=== PATIENT | male | born 1985 | race Two or more races ===

== ENCOUNTER 2019-12-08 11:43 | Emergency (ER) | payer SELFPAY ==
[~2019-12-08] VITALS: Ht 180.3 cm; Wt 66.2 kg
--- NOTE | 2019-12-08 11:43 | NUR ---
PT BIB [address] C/O BIZARRE BEHAVIOR ,SCAVENGING THROUGH DIRT. PT IS AAOX2, NOT IN RESPIRATORY DISTRESS, HOOKED TO REPERTOIRE MANAGER, KEPT RESTED AND COMFORTABLE. WILL CONTINUE TO MONITOR.
--- NOTE | 2019-12-08 11:45 | NUR ---
PT SEEN AND EXAMINED BY
[2019-12-08] MEDS ORDERED: diphenhydrAMINE HCL 50 MG/ML VIAL IV ONE (12:00)
[2019-12-08] MEDS ORDERED: IV NS 0.9% 1,000 ML BAG IV ONE (12:00)
[2019-12-08] MEDS ORDERED: HALOPERIDOL LACTATE INJ 5 MG/ML VIAL IM ONE (12:00)
[2019-12-08] MEDS ORDERED: LORAZEPAM INJ 2 MG/ML VIAL IM/IV ONE (12:00)
--- NOTE | 2019-12-08 12:00 | NUR ---
IV LINE ESTABLISHED BLOOD DRAWN AND SENT TO LAB.
[2019-12-08 12:02] LABS: BASOPHILS % (AUTO) 0.1 % (0.0-2.0); HEMATOCRIT 49 % (39-51); HEMOGLOBIN 16.9 g/dL (13.5-17.5); LYMPHOCYTES # (AUTO) 0.3 /CMM (0.8-4.8); LYMPHOCYTES % (AUTO) 1.8 % (20.0-44.0); MEAN CORPUSCULAR HGB CONC 34 g/dl (31.0-36.0); MEAN CORPUSCULAR VOLUME 103 fL (80-96); MONOCYTES # (AUTO) 2.2 /CMM (0.1-1.30); MONOCYTES % (AUTO) 14.1 % (2.0-12.0); NEUTROPHILS # (AUTO) 13.4 /CMM (1.8-8.9); PLATELET COUNT (AUTO) 161 /CMM (150-450); WHITE BLOOD COUNT (AUTO) 15.9 K/uL (4.3-11.0)
[2019-12-08] MEDS ORDERED: HALOPERIDOL LACTATE INJ 5 MG/ML VIAL ONE (12:02)
[2019-12-08] MEDS ORDERED: diphenhydrAMINE HCL 50 MG/ML VIAL ONE (12:02)
[2019-12-08] MEDS ORDERED: LORAZEPAM INJ 2 MG/ML VIAL ONE (12:02)
--- NOTE | 2019-12-08 12:15 | NUR ---
URINE SPECIMEN COLLECTED AND SENT TO LAB.
[2019-12-08 12:25] LABS: APPEARANCE,URINE Slightly Cloudy (CLEAR); BILIRUBIN,URINE LARGE (NEGATIVE); BLOOD, URINE Large Ery/uL (NEGATIVE); COLOR,URINE Dark (YELLOW); KETONES,URINE 40 (NEGATIVE); LEUKOCYTE ESTERASE ,URINE Negative (NEGATIVE); NITRITE, URINE Positive (NEGATIVE); PH,URINE 5.5 (5.0-8.0); PROTEIN,URINE >=300 mg/dl (NEGATIVE); UGLUCOSE 100 MG/DL mg/dL (NEGATIVE)
[2019-12-08 12:30] LABS: BACTERIA,URINE 1+ /HPF (None Seen); HYALINE CASTS, URINE Moderate /LPF (None Seen); MUCUS,URINE H /LPF (None Seen); RBC,URINE 21-50 /HPF (0-2); SPERM,URINE Many /HPF (None Seen); WBC,URINE NONE SEEN /HPF (0-3)
[2019-12-08 12:30] LABS: ALANINE AMINOTRANSFERASE 223 U/L (12-78); ALCOHOL, BLOOD 13 mg/dL (0-0); ALKALINE PHOSPHATASE 151 U/L (46-116); ASPARTATE AMINOTRANSFERASE 927 U/L (15-37); BILIRUBIN,DIRECT 2.2 mg/dL (0.0-0.2); BILIRUBIN,TOTAL 5.9 mg/dL (0.2-1.0); CALCIUM, SERUM 10.2 mg/dL (8.5-10.1); CARBON DIOXIDE 15 mmol/L (21-32); CHLORIDE 88 mmol/L (98-107); CREATININE 1.4 mg/dL (0.6-1.3); GLUCOSE 71 mg/dL (74-106); SODIUM SERUM 131 mmol/L (136-145); TOTAL PROTEIN, SERUM 9.4 g/dL (6.4-8.2); UREA NITROGEN, BLOOD 40 mg/dL (7-18)
[2019-12-08 12:32] LABS: ACETAMINOPHEN < 10 ug/ml (10-30); POTASSIUM 2.7 mmol/L (3.5-5.1); SALICYLATE 0.2 mg/dL (2.8-20.0)
[2019-12-08] MEDS: POTASSIUM CL. PREMIX PERIPHER. 50 ML IV SCH ×2 (12:50→13:45)
[2019-12-08] MEDS ORDERED: POTASSIUM CL. PREMIX PERIPHER. 100 ML ONE (12:52)
--- NOTE | 2019-12-08 17:44 | NUR ---
PT ASLEEP ON BED. EASILY AROUSABLE. NOT IN RESPIRATORY DISTRESS, V/S STABLE, KEPT RESTED AND COMFORTABLE. WILL CONTINUE TO MONITOR.
--- NOTE | 2019-12-08 20:06 | NUR ---
PT ASLEEP, EASILY AROUSABLE. NO ACUTE DISTRESS NOTED, RESP EVEN AND UNLABORED. V/S STABLE, KEPT RESTED AND COMFORTABLE. WILL CONTINUE TO MONITOR. CALL LIGHT WITHIN REACH. 1:1 SITTER AT BEDSIDE FOR PT SAFETY.
--- NOTE | 2019-12-09 00:04 | NUR ---
PATIENT IS ASLEEP IN BED WITH SIDE RAILS UP FOR SAFETY. PATIENT IS BREATHING EVENLY AND UNLABORED ON ROOM AIR. PATIENT IS AROUSABLE THROUGH VERBAL AND TACTILE STIMULI. CONNECTED TO THE MONITOR. SITTER IS AT BEDSIDE.
--- NOTE | 2019-12-09 03:42 | NUR ---
pt aaox4 no acute distress noted, resp even and unlabored. pt denies si/hi at this time. food tray provided to pt. pt denies pain or discomfort at this time.
--- NOTE | 2019-12-09 04:16 | NUR ---
pt ambulatory to the bathroom with steady gait noted. pt aaox4 no acute distress noted, resp even and unlabored. pt remains pain free at this time.
--- NOTE | 2019-12-09 05:13 | NUR ---
Patient discharged to home in stable condition. Written and verbal after care instructions given. Patient verbalizes understanding of instruction. pt denies si/hi. pt denies being homeless. pt denies pain or discomfort at this time. pt aaox4 ambulatory with steady gait noted.
[2019-12-09 05:20] VITALS: BP 123/64
== END 2019-12-09 05:20 | disposition home or self-care (01) ==
LOC: ER 11:45
DX: F23 Brief psychotic disorder (principal); E87.6 Hypokalemia; F17.200 Nicotine dependence, unspecified, uncomplicated; Z60.2 Problems related to living alone
CPT/HCPCS: 36415; 80048; 80076; 80305; 80307; 80329; 81001; 85025; 96361; 96365; 96366; 96372; 96375; 99285; G0480; J1200; J1630; J2060; J3480; J7030; J7050; 81000-TC

== ENCOUNTER 2020-01-26 12:11 | Inpatient (IN) | payer MEDICAID ==
[~2020-01-26] VITALS: Ht 172.7 cm; Wt 77.1 kg
--- NOTE | 2020-01-26 12:20 | NUR ---
DARLINE Joyce FROM THE [facility] C/O WITNESSED SEIZURE FOR 1 MIN. PATIENT A/OX2-3, VERBALLY RESPONSIVE, BREATHING EVEN AND UNLABORED, NO SOB NOTED, NEEDS ATTENDED, KEPT COMFORTABLE.
[2020-01-26] MEDS ORDERED: LORAZEPAM INJ 2 MG/ML VIAL IVP ONE (12:30)
[2020-01-26] MEDS ORDERED: IV NS 0.9% 1,000 ML BAG IV ONE (12:30)
[2020-01-26] MEDS ORDERED: LORAZEPAM INJ 2 MG/ML VIAL ONE (12:44)
[2020-01-26 12:51] LABS: BASOPHILS # (AUTO) 0.1 /CMM (0.0-0.2); BASOPHILS % (AUTO) 0.6 % (0.0-2.0); HEMATOCRIT 44 % (39-51); HEMOGLOBIN 15.3 g/dL (13.5-17.5); LYMPHOCYTES # (AUTO) 0.5 /CMM (0.8-4.8); MEAN CORPUSCULAR HGB CONC 35 g/dl (31.0-36.0); MEAN CORPUSCULAR VOLUME 101 fL (80-96); MONOCYTES # (AUTO) 0.8 /CMM (0.1-1.30); MONOCYTES % (AUTO) 8.7 % (2.0-12.0); NEUTROPHILS # (AUTO) 8.3 /CMM (1.8-8.9); NEUTROPHILS % (AUTO) 85.7 % (43.0-81.0); PLATELET COUNT (AUTO) 213 /CMM (150-450); RED BLOOD CELL COUNT(AUTO) 4.32 MIL/uL (4.5-6.0); WHITE BLOOD COUNT (AUTO) 9.7 K/uL (4.3-11.0)
[2020-01-26 12:59] LABS: CALCIUM, SERUM 9.1 mg/dL (8.5-10.1); CARBON DIOXIDE 26 mmol/L (21-32); CHLORIDE 94 mmol/L (98-107); CREATININE 0.9 mg/dL (0.6-1.3); GLUCOSE 181 mg/dL (74-106); SODIUM SERUM 136 mmol/L (136-145); UREA NITROGEN, BLOOD 5 mg/dL (7-18)
[2020-01-26 13:05] LABS: ALANINE AMINOTRANSFERASE 42 U/L (12-78); ALBUMIN 4.3 g/dL (3.4-5.0); ALCOHOL, BLOOD < 3 mg/dL (0-0); ALKALINE PHOSPHATASE 156 U/L (46-116); ASPARTATE AMINOTRANSFERASE 71 U/L (15-37); BILIRUBIN,DIRECT 0.4 mg/dL (0.0-0.2); BILIRUBIN,TOTAL 1.4 mg/dL (0.2-1.0); TOTAL PROTEIN, SERUM 8.6 g/dL (6.4-8.2)
--- NOTE | 2020-01-26 13:57 | NUR ---
MOVE SHEET SUBMITTED.
--- NOTE | 2020-01-26 14:07 | NUR ---
PATIENT A/OX4, ATTEMPTED TO STAND UP BUT C/O DIZZINESS. BREATHING EVEN AND UNLABORED, APPEARS TO BE "FIDGETY" ATTACHED TO THE EDUCATIONAL CONSULTANT. NO DISTRESS NOTED.
--- NOTE | 2020-01-26 14:33 | NUR ---
RETAIL LEADER PAGED.
--- NOTE | 2020-01-26 14:59 | NUR ---
COVID SWAB SENT TO LAB.
--- NOTE | 2020-01-26 15:26 | NUR ---
[facility] BED 207-1
--- NOTE | 2020-01-26 15:31 | NUR ---
REPORT GIVEN TO NICOLA DOLAN.
[2020-01-26 16:00] VITALS: BP 146/113
--- NOTE | 2020-01-26 16:00 | NUR ---
ADMISSION RN NOTES RECEIVED REPORT FROM ISIDRO HURT. PATIENT CAME VIA GURNEY TO HIS ROOM. INITIAL VITAL SIGNS BP 146/113 HR 74 SPO2 98% TEM 98.2F RR 18. ON TELE MONITOR SR 80. NO SIGNS OF DISTRESS IN ROOM AIR. NO COMPLAIN OF PAIN AT THIS MOMENT. ORIENTED TO HIS ROOM. SEIZURE PRECAUTION IS APPLIED SIDE RAILS UP X 2 BED LOCK AND IN LOW POSITION. CALL LIGHT WITHIN REACH. WILL CONTINUE TO MONITOR.
--- NOTE | 2020-01-26 16:06 | NUR ---
COVID RESULT: NEGATIVE
--- NOTE | 2020-01-26 17:26 | NUR ---
PATIENT HOMELESS, REQUESTED SOCIAL SERVICE CONSULTATION.
[2020-01-26] MEDS ORDERED: Thiamine 300 MG in IV D5W 50 ML IV ONE (18:00)
[2020-01-26] MEDS ORDERED: Z GUARD REMEDY 2 OZ OINT TP PRN (18:00)
[2020-01-26] MEDS ORDERED: ZOLPIDEM TARTRATE 5 MG TABLET PO PRN (18:00)
[2020-01-26] MEDS ORDERED: ACETAMINOPHEN 325 MG TABLET PO PRN (18:00)
[2020-01-26] MEDS ORDERED: POTASSIUM CHLORIDE 20 MEQ TAB.PRT.SR PO ONE (18:00)
[2020-01-26] MEDS ORDERED: ONDANSETRON HCL/PF 4 MG/2 ML VIAL IVP PRN (18:00)
--- NOTE | 2020-01-26 19:23 | NUR ---
PATIENT TELE MONITOR SVT 180 HR NOTED PATIENT WAS WALKING USING THE RESTROOM PATIENT WENT BACK TO BED RESTED MONITORED TELE AGAIN ST HR 111-120. WILL CONTINUE TO MONITOR. Addendum: 01/26/20 at 1929 by HEIDY COWART RN PATIENT TELE MONITOR SVT 180 HR NOTED PATIENT WAS WALKING USING THE RESTROOM PATIENT WENT BACK TO BED RESTED MONITORED TELE AGAIN ST HR 111-120. PATIENT ASYMPTOMATIC. WILL CONTINUE TO MONITOR.
--- NOTE | 2020-01-26 19:30 | NUR ---
RN CLOSING NOTES PATIENT IS A/O X 4 IN BED WITH NO SIGNS OF DISTRESS IN ROOM AIR. . IV R AC #18 G INTACT RUNNING NS AT 100 MLS/HR. NO COMPLAIN OF PAIN AT THIS MOMENT. PATIENT KEPT CLEAN AND DRY. ALL NEEDS, CARE, TREATMENT AND MEDICATIONS ADMINISTERED ANTICIPATED PER ORDER. SAFETY MEASURES ARE APPLIED, BED IS LOW AND LOCKED. SIDE RAILS UP X 2 FOR SAFETY. CALL LIGHT WITHIN REACH. WILL ENDORSE TO THE NEXT WINDOWS DESKTOP SUPPORT. Addendum: 01/26/20 at 1943 by HEIDY COWART RN KELSI CLOSING NOTES PATIENT IS A/O X 4 IN BED WITH NO SIGNS OF DISTRESS IN ROOM AIR. . IV R AC #18 G INTACT RUNNING NS AT 100 MLS/HR. NO COMPLAIN OF PAIN AT THIS MOMENT. SEIZURE PRECAUTION APPLIED. PATIENT KEPT CLEAN AND DRY. ALL NEEDS, CARE, TREATMENT AND MEDICATIONS ADMINISTERED ANTICIPATED PER ORDER. SAFETY MEASURES ARE APPLIED, BED IS LOW AND LOCKED. SIDE RAILS UP X 2 FOR SAFETY. CALL LIGHT WITHIN REACH. WILL ENDORSE TO THE NEXT WINDOWS DESKTOP SUPPORT.
[2020-01-26] MEDS: IV NS 0.9% 1,000 ML IV PRN (19:38)
[2020-01-26 20:00] VITALS: BP_SYST 127; BP_DIAS 85; BP_DIAS 88
--- NOTE | 2020-01-26 20:34 | NUR ---
RN OPENING NOTES PATIENT RECEIVED RESTING IN BED A/O X 4. STABLE ON RA WITH BREATHING EVEN AND UNLABORED, NO SOB NOTED. NO SIGNS OF ACUTE DISTRESS. NO COMPLAINTS OF PAIN OR DISCOMFORT. TELE MONITOR READING SR. IV LOCATED ON R AC #18 RUNNING NS @ 75ML/HR. SAFETY PRECAUTIONS IN PLACE WITH BED IN LOWEST POSITION, CALL LIGHT WITHIN REACH, BREAKS ON, SIDE RAILS UP. SEIZURE PRECAUTIONS IN PLACE. WILL CONTINUE TO MONITOR THROUGHOUT THE NIGHT.
[2020-01-27] VITALS: BP 124/92
[2020-01-27 04:00] VITALS: BP 146/90
--- NOTE | 2020-01-27 04:20 | NUR ---
RN NOTES COVID TEST COLLECTED ORALLY AND SENT TO LAB.
--- NOTE | 2020-01-27 04:30 | NUR ---
RN NOTES PATIENT COMPLAINING OF ABDOMINAL MILD PAIN ON LUQ AN ACHING SHARP FEELING. PRN TYLENOL 650 MG ADMINISTERED. WILL CONTINUE TO MONITOR.
[2020-01-27] MEDS: IV NS 0.9% 1,000 ML IV PRN (06:24)
--- NOTE | 2020-01-27 06:41 | NUR ---
RN CLOSING NOTES PATIENT RESTING IN BED A/O X 4. STABLE ON RA WITH BREATHING EVEN AND UNLABORED, NO SOB NOTED. NO SIGNS OF ACUTE DISTRESS. NO COMPLAINTS OF PAIN OR DISCOMFORT. TELE MONITOR READING SR. IV LOCATED ON R AC #18 RUNNING NS @ 100ML/HR. SAFETY PRECAUTIONS IN PLACE WITH BED IN LOWEST POSITION, CALL LIGHT WITHIN REACH, BREAKS ON, SIDE RAILS UP. SEIZURE PRECAUTIONS IN PLACE. ALL NEEDS ATTENDED TO. WILL ENDORSE TO ONCOMING SHIFT ABOUT MAGEN.
[2020-01-27 06:54] LABS: BASOPHILS % (AUTO) 0.5 % (0.0-2.0); EOSINOPHILS % (AUTO) 0.2 % (0.0-6.0); HEMATOCRIT 43 % (39-51); HEMOGLOBIN 14.7 g/dL (13.5-17.5); LYMPHOCYTES # (AUTO) 0.5 /CMM (0.8-4.8); LYMPHOCYTES % (AUTO) 8.2 % (20.0-44.0); MEAN CORPUSCULAR HGB CONC 35 g/dl (31.0-36.0); MEAN CORPUSCULAR VOLUME 102 fL (80-96); MONOCYTES # (AUTO) 0.7 /CMM (0.1-1.30); MONOCYTES % (AUTO) 11.6 % (2.0-12.0); NEUTROPHILS % (AUTO) 79.5 % (43.0-81.0); PLATELET COUNT (AUTO) 147 /CMM (150-450); RED BLOOD CELL COUNT(AUTO) 4.16 MIL/uL (4.5-6.0); WHITE BLOOD COUNT (AUTO) 6.3 K/uL (4.3-11.0)
--- NOTE | 2020-01-27 07:05 | NUR ---
RN OPENING NOTE RECEIVED PT AWAKE IN BED AT THIS TIME. AOX4. PT ABLE TO MAKE NEEDS KNOWN. NO SOB NOTED, NO S/S OF ANY ACUTE DISTRESS NOTED. NO C/O PAIN AT THIS TIME. PT ON EXTERNAL CARDIAC TELE MONITOR READING SR IN THE 90S. RESPIRATIONS ARE EVEN AND UNLABORED WITH EQUAL RISE AND FALL IN CHEST. IV ACCESS NOTED IN RAC G#18. SAFETY, SEIZURE AND ASPIRATION PRECAUTION IN PLACE AND MAINTAINED AT ALL TIMES. BED IN LOWEST LOCKED POSITION, HOB ELEVATED, SIDE RAILS UP X 2 AND PADDED, CALL LIGHT WITHIN REACH. WILL CONTINUE TO MONITOR
[2020-01-27 07:34] LABS: ALBUMIN 3.9 g/dL (3.4-5.0); BILIRUBIN,TOTAL 1.8 mg/dL (0.2-1.0); CALCIUM, SERUM 8.9 mg/dL (8.5-10.1); CREATININE 0.6 mg/dL (0.6-1.3); MAGNESIUM 2.1 mg/dL (1.8-2.4); PHOSPHORUS 2.8 mg/dL (2.5-4.9); TOTAL PROTEIN, SERUM 8.1 g/dL (6.4-8.2)
[2020-01-27 07:47] LABS: POTASSIUM 2.6 mmol/L (3.5-5.1)
--- NOTE | 2020-01-27 07:55 | NUR ---
POTASSIUM 2.6 CRITICAL LAB VALUE REPORTED BY SEVEN MAINTENANCE TECHNICIAN 3RD SHIFT, RESULTS READ BACK. DR GIORDANO MADE AWARE. PER DR GIORDANO, ADMINISTER KDUR 60MEQ PO X1. ORDERS CARRIED OUT. WILL CONTINUE TO MONITOR
[2020-01-27 08:00] VITALS: BP 137/92
[2020-01-27 08:05] LABS: THYROID STIMULATING HORMONE 1.075 uIU/mL (0.358-3.74)
[2020-01-27] MEDS: FOLIC ACID 1 MG TABLET PO SCH (08:28)
[2020-01-27] MEDS: MULTIVIT W/MINERALS 1 TAB TABLET PO SCH (08:28)
[2020-01-27] MEDS: POTASSIUM CHLORIDE 20 MEQ TAB.PRT.SR PO SCH ×3 (08:28→10:45)
[2020-01-27] MEDS: THIAMINE HCL 100 MG TABLET PO SCH (08:28)
[2020-01-27] MEDS: LORAZEPAM INJ 2 MG/ML VIAL IV PRN ×2 (08:29→12:38)
--- NOTE | 2020-01-27 08:30 | NUR ---
PT C/O TREMORS AND NOTED WITH TREMORS. BP 137/92 HR 86, RR 16, T 97.6, SPO2 98%. PER PT REQUEST ATIVAN 2MG IV Q4HRS PRN FOR TREMORS ADMINISTERED AT THIS TIME. WILL CONTINUE TO MONITOR
[2020-01-27] MEDS ORDERED: HYDROCODONE/APAP 10/325MG TABLET PO PRN (12:00)
--- NOTE | 2020-01-27 12:40 | NUR ---
PT C/O ACHING RIGHT RIB CAGE PAIN OF 7/10 AND TREMORS. PT NOTED WITH FACIAL GRIMACE/TREMORS. DR GIORDANO MADE AWARE. RECEIVED ORDER FOR NORCO 10-325MG PO Q6HR FOR PAIN. ORDERS READ BACK AND CARRIED OUT. ADMINISTERED NORCO 10-325MG PO Q6HR FOR PAIN AND ATIVAN 2MG IV Q4HR PRN FOR TREMORS PER ORDER. WILL CONTINUE TO MONITOR
--- NOTE | 2020-01-27 13:20 | NUR ---
PT NOTED WITH HR IN THE 140S. DR GIORDANO MADE AWARE. PER DR GIORDANO, ADMINISTER ATIVAN ORDERED AND GIVE 1LITER NS BOLUS. ORDERS. ORDERS CARRIED OUT, WILL CONTINUE TO MONITOR
[2020-01-27] MEDS ORDERED: IV NS 0.9% 1,000 ML IV ONE (13:30)
--- NOTE | 2020-01-27 14:23 | NUR ---
Social Service Consult: SS consult requested by Daniel Baird DNP for Homelessness. The pt. is 34 years old Male in Med/Surg for Alcohol Withdrawal. SW completed assessment via [employer]. The pt. was receptive to speaking to SW. The pt. appears neat and is alert and oriented x4. The pt.s speech is WNL and remained cooperative throughout assessment. The pt. denies hallucinations and denies SI/HI. The pt.s mood is Euthymic with full affect. Per pt. he has been experiencing homelessness for the pt. 4 months. Per pt. he was last residing in [facility] in [place] and plans to return there once ready for D/C. SW unable to find the address and phone number as it is a fairly new project. However, pt. stated that they will accept him back and that he knows how to get there via bus. Per patient, his sister who resides in a different state can be his emergency contact. Per pt., he is willing to provide his sisters number to nurse upon discharge as he has her number in his phone. Per pt. he is ambulatory. Per pt. he smokes Marijuana about every 2 days and is not a problem in his life. Per pt., he also consumes a couple of beers every 3-4 days. Pt. expressed that his alcohol consumption has been affecting his relationships negatively. Pt. stated that he enjoys drinking and does not wants to stop drinking. SW asked pt. if he has ever thought about going to a rehab. Pt. stated, he is not opposed to it. PRIYA provided Alcohol Use Treatment Programs including: [facility] Substance Abuse Self-helpline ([facility]) Contact number .Call the hotline and the hardware press operator will screen and link individual to an appropriate program. Must have Medi-natasha or be Med-natasha eligible; [facility] [address] [facility] [place] [address] ; [facility] [address] [place] [address] Appointment needed Intake at 8.00 am but this does not mean acceptance ; [facility] ([facility]nosticist based) [address] [place] [address] .Pt, expressed understanding and thanked SW. SW also provided pt. with the following resources: Year-round shelters : [facility] [address] [place] [address] ; [facility] [address] [facility] [place] [address]; [facility] [facility] [address] [facility]: [facility] [address] [place] ; [facility] [address] [facility] ; [facility] [address], [place] . Food Resources: [facility] at [facility]- [address] [place]; [facility] ([facility]) [address] [facility]; [facility] [address] [facility]; [facility] [address] [facility] [address]. Marriage and Family: [facility], [address] [place], [place], [facility], [address], [place], [facility], [address] [place] [address], [place] Mental Health resources provided: [facility] [address] [place] [address] ; [facility] [address], [place] [address] ; [address] [facility] Mental [facility] [address] [place] [address] ; [facility] [place], [place] [id number] PRIYA informed Charge Nurse that the pt. will require a TAP card and must sign homeless waiver upon discharge.
--- NOTE | 2020-01-27 14:24 | NUR ---
pt consulted by [employer] game platform, will continue to monitor
--- NOTE | 2020-01-27 14:30 | NUR ---
pt pulled out RAC iv access, pressure applied, secure with gauze and tape. no bleeding or infiltration noted. will continue to monitor
--- NOTE | 2020-01-27 14:40 | NUR ---
NEW IV ACCESS IN LAC G#20 INSERTED BY KELSI GUPTA. INTACT, PATENT AND FLUSHING WELL. WILL CONTINUE TO MONITOR
--- NOTE | 2020-01-27 15:40 | NUR ---
PT HAS NO IV ACCESS, DR GIORDANO MADE AWARE, WILL CONTINUE TO MONITOR
--- NOTE | 2020-01-27 15:43 | NUR ---
pt pulled out lac iv access, pressure applied, secure with gauze and tape. no bleeding or infiltration noted. will continue to monitor
[2020-01-27 16:00] VITALS: BP 133/74
[2020-01-27] MEDS ORDERED: HALOPERIDOL DECANOATE IM 100 MG/ML AMPUL IM ONE (16:30)
--- NOTE | 2020-01-27 16:47 | NUR ---
PT GETTING INCREASINGLY CONFUSED, PULLED OUT IV TWICE AND PACING. DR GIORDANO MADE AWARE, PER DR GIORDANO, ADMINISTER HALDOL 5MG IM X 1. ORDERS CARRIED OUT. WILL CONTINUE TO MONITOR
[2020-01-27] MEDS ORDERED: HALOPERIDOL LACTATE INJ 5 MG/ML VIAL IM ONE (17:00)
[2020-01-27] MEDS ORDERED: LORAZEPAM INJ 2 MG/ML VIAL IM PRN ×2 (18:00)
--- NOTE | 2020-01-27 18:00 | NUR ---
PT NOTED PACING/ANXIOUS, PER PT REQUEST ATIVAN 2MG IM Q4HRS PRN ADMINISTERED AT THIS TIME. WILL CONTINUE TO MONITOR
--- NOTE | 2020-01-27 18:03 | NUR ---
PT KEEPS PULLING OUT IV. DOCTOR GIULIANA MADE AWARE. PER DOCTOR GIORDANO, ADMINISTER ATIVAN IM. ATIVAN CHANGED FROM IV TO IM. ORDERS CARRIED OUT. WILL CONTINUE TO MONITOR
--- NOTE | 2020-01-27 18:56 | NUR ---
RN CLOSING NOTES PT AWAKE IN BED AT THIS TIME. PT REMAINED STABLE THROUGHOUT SHIFT. ALL CARE, NEEDS, MEDICATIONS, AND TREATMENT ADMINISTERED ANTICIPATED PER ORDER. PT KEPT CLEAN AND DRY. SEIZURE AND SAFETY PRECAUTION IN PLACE AND MAINTAINED AT ALL TIMES. BED IN LOWEST LOCKED POSITION, HOB ELEVATED, SIDE RAILS UP X 2, CALL LIGHT WITHIN REACH. WILL ENDORSE TO CLIENT SERVER PROGRAMMER NURSE FOR MAGEN
--- NOTE | 2020-01-27 19:00 | NUR ---
GPS NAVIGATION INSTALLER OPENING NOTES: RECEIVED PATIENT INSIDE THE ROOM, WALKING AROUND. CONFUSED. AND AFTER FEW MINUTES PATIENT WENT OUT OF THE ROOM AND WANTS TO LEAVE AND HE SAID HE WANTS TO GO TO THE STORE. PER REPORTS FROM THE DAYSHIFT, PATIENT WAS GOING OUTSIDE OF THE ROOM SEVERAL TIMES AND TRIED TO GO OUT OF THE FLOOR. PATIENT IS A/OX1,CONFUSED. NO S/S OF DISTRESS NOTED. NO COMPLAIN OF PAIN. AMBULATORY WITH STEADY GAIT. PATIENT REMINDED EVERY TIME HE TRIED TO GO OUT OF THE ROOM AND REDIRECTED TO HIS BED.
--- NOTE | 2020-01-27 19:30 | NUR ---
INSERTED RIGHT HAND IV G# 22. BACK FLOW OF BLOOD RETURN NOTED, PT TOLERATED WELL. IV INTACT, PATENT AND FLUSHING WELL. WILL ENDORSE TO MILL LABORER NURSE FOR MAGEN.
[2020-01-27 20:00] VITALS: BP 143/80
--- NOTE | 2020-01-27 20:00 | NUR ---
BILATERAL SOFT WRISTS RESTRAINTS APPLIED. IVF NS RUNNING AT 100ML/HOUR RESTARTED. AND MONITOR LEADS PLACED.
--- NOTE | 2020-01-27 20:20 | NUR ---
PATIENT ABLE TO REMOVE THE BOTH RESTRAINTS AND THE MONITOR LEADS.ASSISTED BY THE AGRICULTURAL TECHNICAL OFFICER TO THE BATHROOM,PATIENT VOIDED. LEADS PLACED BACK. BUT THE RESTRAINTS UNABLE TO PUT THEM BACK, PATIENT IS REFUSING. INFORMED DR INDERJIT GIORDANO AND GOT AN ORDER FOR A 1:1 SITTER. ANNIE VILLASENOR WATCHING THE PATIENT AT THIS TIME.
--- NOTE | 2020-01-27 20:53 | NUR ---
INFORMED CHARGE NURSE FLOYD RE: 1:1 SITTER. AND SHE SAID THAT TO CALL THE TALENT RECRUITER.
--- NOTE | 2020-01-27 21:00 | NUR ---
INFORMED THE CITY JAILER JAIR RE: 1:1 SITTER.
--- NOTE | 2020-01-27 21:08 | NUR ---
ASKED THE PATIENT WHERE HE IS AT RIGHT NOW, PATIENT REPLIED" I'M [place]".
[2020-01-28] VITALS: BP 130/91
--- NOTE | 2020-01-28 00:25 | NUR ---
PATIENT IS IN BED ASLEEP AT THIS TIME WITH RICKEY VILLASENOR. STILL WITH IV AND IVF NS RUNNING AT 100ML/HOUR. MONITOR LEADS ARE NOT ON THE PATIENTS RIGHT NOW, TRIED SEVERAL TIMES TO PLACE THEM BACK ON TO THE PATIENT, BUT PATIENT DOES NOT WANT, PATIENT WAS HOLDING THE BOX AND WON'T LET IT GO, AND PATIENT WAS COMBATIVE.
--- NOTE | 2020-01-28 00:30 | NUR ---
INFORMED CREATIVE PRODUCER KARLI RE:PATIENT HAS NO MONITOR LEADS FOR TELE.
[2020-01-28] MEDS: IV NS 0.9% 1,000 ML IV PRN ×2 (01:42→12:06)
[2020-01-28 04:00] VITALS: BP 149/98
--- NOTE | 2020-01-28 05:58 | NUR ---
BROOMCORN SCRAPER CLOSING NOTES: PATIENT IN BED, AWAKE. A/O X2,WITH PERIODS OF CONFUSION, PATIENT IS CALM AT THIS TIME. RESTED THROUGHOUT THE NIGHT. WITH THE SITTER AT THE BEDSIDE. AMBULATORY, STEADY GAIT. NO S/S OF DISTRESS NOTED. NO COMPLAIN OF PAIN DURUNG THE SHIFT. NO SEIZURES NOTED. STILL WITH THE IVF RUNNING NS AT 100ML/HR. CALL LIGHT WITHIN REACH. BED IN LOWEST AND LOCKED POSITION.
--- NOTE | 2020-01-28 06:30 | NUR ---
REPORTS GIVEN TO KELSI LIMA. PATIENT WAS TRANSFERRED BY WHEELCHAIR WITH HIS BELONGINGS, ACCOMPANIED BY ANNIE VILLASENOR.
[2020-01-28 06:53] LABS: BASOPHILS % (AUTO) 0.5 % (0.0-2.0); EOSINOPHILS % (AUTO) 0.4 % (0.0-6.0); HEMATOCRIT 43 % (39-51); LYMPHOCYTES # (AUTO) 0.7 /CMM (0.8-4.8); LYMPHOCYTES % (AUTO) 14.5 % (20.0-44.0); MEAN CORPUSCULAR HGB CONC 35 g/dl (31.0-36.0); MEAN CORPUSCULAR VOLUME 102 fL (80-96); MONOCYTES # (AUTO) 0.6 /CMM (0.1-1.30); MONOCYTES % (AUTO) 13.7 % (2.0-12.0); NEUTROPHILS # (AUTO) 3.2 /CMM (1.8-8.9); NEUTROPHILS % (AUTO) 70.9 % (43.0-81.0); PLATELET COUNT (AUTO) 141 /CMM (150-450); RED BLOOD CELL COUNT(AUTO) 4.22 MIL/uL (4.5-6.0); WHITE BLOOD COUNT (AUTO) 4.5 K/uL (4.3-11.0)
[2020-01-28 07:07] LABS: CALCIUM, SERUM 9.1 mg/dL (8.5-10.1); CREATININE 0.5 mg/dL (0.6-1.3); MAGNESIUM 2.2 mg/dL (1.8-2.4); PHOSPHORUS 3.7 mg/dL (2.5-4.9)
--- NOTE | 2020-01-28 07:19 | NUR ---
MS/RN CLOSING NOTE Patient transferred from [facility] via wheel chair. Patient A/O x1-2, with sitter at bedside. Breath sounds even clear unlabored. No SOB or acute distress. Patient is ambulatory with BRP. IV access R wrist 20g running NS @ 100 ml/hr. No infiltration. Bed in low position, wheels locked, side rails up x2, call light within reach.
--- NOTE | 2020-01-28 07:40 | NUR ---
EXTENSION PROFESSOR OPENING NOTES BEDSIDE ENDORSEMENT DONE. PATIENT IS AWAKE AND VERBALLY RESPONSIVE, A/O X2-3, ABLE TO MAKE NEEDS KNOWN. BREATHING EVEN AND UNLABORED, TOLERATING ROOM AIR, NO ACUTE DISTRESS. ON TELE MONITORING, SR W/ HR AT MID 70'S, NO CARDIAC DISTRESS NOTED. IV SITE ON R HAND #22 INTACT AND PATENT. SAFETY PRECAUTIONS IN PLACE: BED LOCKED AND ON LOWEST POSITION, SR UP X2, CALL LIGHT W/IN REACH. WILL CONTINUE TO MONITOR.
[2020-01-28 07:48] LABS: POTASSIUM 2.4 mmol/L (3.5-5.1)
[2020-01-28 08:00] VITALS: BP 144/106
[2020-01-28] MEDS: MULTIVIT W/MINERALS 1 TAB TABLET PO SCH (08:20)
[2020-01-28] MEDS: FOLIC ACID 1 MG TABLET PO SCH (08:20)
[2020-01-28] MEDS: THIAMINE HCL 100 MG TABLET PO SCH (08:21)
[2020-01-28] MEDS ORDERED: POTASSIUM CHLORIDE 10 MEQ/50 ML PREMIXED IVPB FOR PERIPHERAL LINE IV ONE (10:00)
[2020-01-28] MEDS: POTASSIUM CHLORIDE 10 MEQ/50 ML PREMIXED IVPB FOR PERIPHERAL LINE IV SCH ×4 (10:59→14:16)
[2020-01-28] MEDS: DIAZEPAM 5 MG TABLET PO PRN ×2 (11:13→21:37)
[2020-01-28] MEDS: POTASSIUM CL. PREMIX PERIPHER. 50 ML IV SCH ×4 (14:46→18:05)
[2020-01-28] MEDS ORDERED: POTASSIUM CHLORIDE 10 MEQ/50 ML PREMIXED IVPB FOR PERIPHERAL LINE IV SCH (15:00)
[2020-01-28 16:00] VITALS: BP 151/114
--- NOTE | 2020-01-28 17:51 | NUR ---
RN NOTES PATIENT REQUESTED TO HAVE SHOWER. IV SITE WRAPPED AND PROTECTED. PATIENT IS ALERT AND VERBALLY RESPONSIVE, ABLE TO MAKE NEEDS KNOWN, CURRENTLY IN CALM CONDITION.
[2020-01-28] MEDS ORDERED: AMLODIPINE BESYLATE 5 MG TABLET PO ONE (18:30)
--- NOTE | 2020-01-28 18:30 | NUR ---
RN NOTES PATIENT NOTED W/ BP OF 151/114, HR OF 113. DR. GIORDANO MADE AWARE W/ ORDER OF NORVASC 5MG PO X1 NOW, THEN DAILY STARTING TOMORROW, NOTED AND CARRIED OUT. WILL CONTINUE TO MONITOR.
--- NOTE | 2020-01-28 18:56 | NUR ---
MS RN CLOSING NOTES PATIENT AWAKE, CALM AND SITTING ON BED AT THIS TIME WITH SITTER AT BEDSIDE. A/O X3. ABLE TO MAKE NEEDS KNOWN. NO EPISODE OF SEIZURE NOTED THROUGHOUT THE DAY. ON ROOM AIR, BREATHING EVEN AND UNLABORED. IV ACCESS ON R HAND G#22 INTACT AND PATENT, IVF INFUSING ORDERED, NO S/S OF INFILTRATION NOTED AT SITE. ALL NEEDS AND CARE ATTENDED WELL. SAFETY PRECAUTIONS IN PLACE: BED LOCKED AND ON LOWEST POSITION, SR UP X2, CALL LIGHT W/IN REACH. WILL ENDORSE MAGEN TO NIGHT NURSE.
[2020-01-28] MEDS ORDERED: AMLODIPINE BESYLATE 5 MG TABLET PO SCH (19:00)
--- NOTE | 2020-01-28 19:30 | NUR ---
MS RN OPENING NOTED RECEIVED PATIENT IN BED. A/OX3. TOLERATING ROOM AIR. RESPIRATIONS ARE EVEN AND UNLABORED. NO S/SS OB NOTED. NO C/O PAIN AT THIS TIME. IN NO APPARENT DISTRESS. IV ACCESS IN RIGHT HAND#22 RUNNING NS@100ML/HR. INFORMED PATIENT LAB WILL DRAW BLOOD TO REASSESS POTASSIUM LEVELS AND INTERVENTIONS POSSIBLE NEEDED IF LEVEL IS LOW. BED IS LOW AND LOCKED, HOB ELEVATED IN SEMI FOWLERS, SIDE RIALS UP X2. ISIAH LIGHT WITHIN REACH. WILL CONTINUE TO MONITOR.
[2020-01-28 20:00] VITALS: BP 151/116
--- NOTE | 2020-01-28 20:18 | NUR ---
MS RN NOTE INFORMED TITLE INSURANCE SALES REPRESENTATIVE MD DR. MUNGUIA PATIENT BP IS 151/115 HR 108. LAST BP MED GIVEN NORVASC 5MG AT 1845. TELEPHONE ORDER CLONIDINE 0.1MG Q6HR PRN SBP >150. ORDER READ BACK NOTED AND CARRIED OUT. WILL CONTINUE TO MONITOR.
[2020-01-28] MEDS ORDERED: CLONIDINE HCL 0.1 MG TABLET PO PRN (20:30)
--- NOTE | 2020-01-28 20:48 | NUR ---
MS RN NOTE 2000 BLOOD DRAW FOR POTASSIUM LEVEL IS 3.5. NO INTERVENTION NEEDED PER MISCELLANEOUS ORDER. WILL CONTINUE TO MONITOR.
--- NOTE | 2020-01-28 21:21 | NUR ---
MS RN NOTE - MAGEN TRANSFER OF CARE GIVEN TO RAYSA ONEIL.
--- NOTE | 2020-01-28 21:26 | NUR ---
MS CLARICE INITIAL NOTES RECEIVED REPORT FROM ANOTHER NURSE DEAN FOR CONTINUITY OF CARE. PT AWAKE AND ALERT WATCHING TV AT THIS TIME. NO SIGNS OF ANY DISTRESS NOTED. IVF STILL INFUSING . KEPT HIM WARM AND COMFORTABLE AT ALL TIMES. WILL CONTINUE CLOSELY MONITORING.
--- NOTE | 2020-01-29 01:07 | NUR ---
MS WEAVER NEEDLE LOOM NOTES PT SLEEPING AFTER VALUIM GIVEN ORDERED. BLOOD PRESSURE RE-CHEKED AFTER CLONODINE GIVEN AN D CAME OUT 141/108.
--- NOTE | 2020-01-29 07:04 | NUR ---
ms jhonny closing notes pt woke up with smiles on his face ,pleasant and he's calmed, cooperative, no signs of any agitation noted throughout the shift. he told me he slept better and feel much better. he told me that he has a sister that lives in [facility] but he doesn't want to go back there at this time. he forgot that certified social workers in health care spoke to him yesterday . gave copy of the list of certified social workers in health care told him regarding his place to stay and where can he get support for the meantime. kept him warm and comfortable at all times. will endorse to am nurse for continuity of care.
--- NOTE | 2020-01-29 07:08 | NUR ---
MS RN OPENING NOTES PATIENT RECEIVED AWAKE IN BED IN NO ACUTE SIGNS OF DISTRESS. A/O X3-4. ABLE TO MAKE NEEDS KNOWN, DENIES PAIN R ANY DISCOMFORTS AT THIS TIME. ON ROOM AIR, BREATHING EVEN AND UNLABORED. IV ACCESS ON R HAND G#22 INTACT AND PATENT, IVF INFUSING ORDERED, NO S/S OF INFILTRATION NOTED AT SITE. SEIZURE AND SAFETY PRECAUTIONS IN PLACE: BED LOCKED AND ON LOWEST POSITION, SR UP X2, CALL LIGHT W/IN REACH. WILL CONTINUE TO MONITOR PT ACCORDINGLY.
[2020-01-29 07:44] LABS: BASOPHILS % (AUTO) 0.5 % (0.0-2.0); EOSINOPHILS % (AUTO) 1.5 % (0.0-6.0); HEMATOCRIT 49 % (39-51); HEMOGLOBIN 16.8 g/dL (13.5-17.5); LYMPHOCYTES % (AUTO) 18.7 % (20.0-44.0); MEAN CORPUSCULAR HGB CONC 34 g/dl (31.0-36.0); MEAN CORPUSCULAR VOLUME 105 fL (80-96); MONOCYTES # (AUTO) 0.8 /CMM (0.1-1.30); MONOCYTES % (AUTO) 14.9 % (2.0-12.0); NEUTROPHILS # (AUTO) 3.6 /CMM (1.8-8.9); NEUTROPHILS % (AUTO) 64.4 % (43.0-81.0); PLATELET COUNT (AUTO) 162 /CMM (150-450); RED BLOOD CELL COUNT(AUTO) 4.72 MIL/uL (4.5-6.0); WHITE BLOOD COUNT (AUTO) 5.5 K/uL (4.3-11.0)
[2020-01-29 07:58] LABS: CALCIUM, SERUM 9.5 mg/dL (8.5-10.1); CREATININE 0.6 mg/dL (0.6-1.3); MAGNESIUM 2.3 mg/dL (1.8-2.4); PHOSPHORUS 4.3 mg/dL (2.5-4.9)
[2020-01-29 08:10] LABS: POTASSIUM 2.8 mmol/L (3.5-5.1)
[2020-01-29] MEDS: AMLODIPINE BESYLATE 5 MG TABLET PO SCH (09:11)
[2020-01-29] MEDS: THIAMINE HCL 100 MG TABLET PO SCH (09:11)
[2020-01-29] MEDS: FOLIC ACID 1 MG TABLET PO SCH (09:11)
[2020-01-29] MEDS: MULTIVIT W/MINERALS 1 TAB TABLET PO SCH (09:11)
[2020-01-29] MEDS: MULTIPLE VIT (LYCOPENE/FA/MV,CA,IRON,MIN/LUT)1 TAB PO SCH (09:12)
[2020-01-29] MEDS: POTASSIUM CHLORIDE 20 MEQ TAB.PRT.SR PO SCH ×3 (09:34→11:48)
--- NOTE | 2020-01-29 10:00 | NUR ---
RN NOTES RECEIVED NEW ORDER FROM DR. GIORDANO TO REPLENISH PATIENT'S POTASSIUM, NOTED.
[2020-01-29] MEDS: POTASSIUM CL. PREMIX PERIPHER. 50 ML IV SCH ×4 (14:43→18:08)
--- NOTE | 2020-01-29 18:49 | NUR ---
MS RN CLOSING NOTES PATIENT IS IN BED, AWAKE AND VERBALLY RESPONSIVE, IN NO ACUTE SIGNS OF DISTRESS. A/O X3-4. ABLE TO MAKE NEEDS KNOWN, DENIES PAIN NOR ANY DISCOMFORT AT THIS TIME. BREATHING EVEN AND UNLABORED, TOLERATING ROOM AIR. IV ACCESS ON R HAND G#22 INTACT AND PATENT, IVF INFUSING ORDERED. SEIZURE AND SAFETY PRECAUTIONS MAINTAINED: BED LOCKED AND ON LOWEST POSITION, SR UP X2, CALL LIGHT W/IN REACH. WILL ENDORSE TO WRINKLE CHASER RN FOR MAGEN.
[2020-01-29] MEDS: IV NS 0.9% 1,000 ML IV PRN (18:56)
--- NOTE | 2020-01-29 19:43 | NUR ---
MS/TELE/RN RECEIVED PATIENT IN ROOM SITTING ON CHAIR AT BEDSIDE AWAKE, ALERT, ORIENTED, CALM AND COMFORTABLE, NO DISTRESS NOTE, IVF INFUSING, CALL LIGHT IN REACH, WILL MONITOR.
[2020-01-29 20:00] VITALS: BP 150/112
--- NOTE | 2020-01-30 00:55 | NUR ---
MS/TELE PATIENT IS SLEEPING AT THIS TIME, APPEAR COMFORTABLE, NO DISTRESS NOTED, CALL LIGHT IN REACH. WILL CONTINUE TO MONITOR.
--- NOTE | 2020-01-30 06:56 | NUR ---
MS/TELE/RN PATIENT IS AWAKE AT THIS TIME, SITTING AT EDGE OF BED, CALM AND COMFORTABLE, NO DISTRESS NOTED, CALL LIGHT IN REACH, ALL NEEDS ATTENDED AT THIS TIME, WILL CONTINUE TO MONITOR.
--- NOTE | 2020-01-30 07:35 | NUR ---
MS RN NOTES RECEIVED PT IN BED, AWAKE, A/O X3-4. PT TOLERATING RA, WITH NO ACUTE RESPIRATORY DISTRESS NOTED. PT STATED RIGHT LATERAL PAIN, REFUSED PAIN MEDICINE. PT CONCERNED OF GOING HOME TODAY. RN TO FOLLOW UP. IVF NS 100 ML/HR TO RIGHT HAND 22, INTACT AND OPERATIONAL. PT KEPT COMFORTABLE. CALL LIGHT KEPT WITHIN REACH. PT'S BED IN LOWEST, LOCKED POSITION WITH SRX2. WILL CONTINUE PLAN OF CARE.
[2020-01-30 08:00] VITALS: BP 138/117
[2020-01-30 08:38] LABS: BASOPHILS % (AUTO) 0.6 % (0.0-2.0); EOSINOPHILS % (AUTO) 1.7 % (0.0-6.0); HEMATOCRIT 47 % (39-51); HEMOGLOBIN 16.4 g/dL (13.5-17.5); LYMPHOCYTES % (AUTO) 16.6 % (20.0-44.0); MEAN CORPUSCULAR HGB CONC 35 g/dl (31.0-36.0); MEAN CORPUSCULAR VOLUME 102 fL (80-96); MONOCYTES % (AUTO) 17.1 % (2.0-12.0); NEUTROPHILS # (AUTO) 3.7 /CMM (1.8-8.9); PLATELET COUNT (AUTO) 173 /CMM (150-450); RED BLOOD CELL COUNT(AUTO) 4.57 MIL/uL (4.5-6.0); WHITE BLOOD COUNT (AUTO) 5.8 K/uL (4.3-11.0)
[2020-01-30 08:43] LABS: CALCIUM, SERUM 9.6 mg/dL (8.5-10.1); CREATININE 0.6 mg/dL (0.6-1.3); MAGNESIUM 2.3 mg/dL (1.8-2.4); PHOSPHORUS 3.8 mg/dL (2.5-4.9); POTASSIUM 4.1 mmol/L (3.5-5.1)
[2020-01-30 08:49] VITALS: BP 138/117
[2020-01-30] MEDS: THIAMINE HCL 100 MG TABLET PO SCH (08:49)
[2020-01-30] MEDS: AMLODIPINE BESYLATE 5 MG TABLET PO SCH (08:49)
[2020-01-30] MEDS: MULTIPLE VIT (LYCOPENE/FA/MV,CA,IRON,MIN/LUT)1 TAB PO SCH (08:49)
[2020-01-30] MEDS: MULTIVIT W/MINERALS 1 TAB TABLET PO SCH (08:49)
[2020-01-30] MEDS: FOLIC ACID 1 MG TABLET PO SCH (08:49)
[2020-01-30 13:41] LABS: EOSINOPHILS % (MANUAL) 2 % (0-4); LYMPHOCYTES % (MANUAL) 20 % (16-48); MONOCYTES % (MANUAL) 14 % (0-11.0); NEUTROPHILS % (MANUAL) 64 (42-76)
--- NOTE | 2020-01-30 15:10 | NUR ---
MS RN NOTES PT TO GO HOME/USP AT [facility]. PT A/O X3-4, AMBULATORY. PT TOLERATING RA, WITH NO ACUTE RESPIRATORY DISTRESS NOTED. PT DENIES ANY PAIN OR DISCOMFORT AT THE TIME OF DISCHARGE. PIV RIGHT HAND 22, REMOVED. ALL NEEDS ATTENDED. PT REVIEWED AND SIGNED DISCHARGE INSTRUCTIONS AND INVENTORY LIST. ALL BELONGINGS WITH THE PATIENT. NO PRESCRIPTIONS. SKIN ASSESSED, SKIN INTACT. PT ALSO SIGNED HOMELESS WAIVER. HOSPITALIST/TS AWARE OF DISCHARGE. VS STABLE AT DISCHARGE. PT LEFT THE UNIT AT 1450. RN ESCORTED PT TO THE LOBBY, PT AMBULATORY, REFUSED WHEELCHAIR.
== END 2020-01-30 14:52 | disposition home or self-care (01) | DRG 775 ==
LOC: ER 12:13 → TELE2 15:49 → TELE 01-28 06:37 → MED 01-28 10:34
PROVIDERS: ADMIT Nurse Practitioner Acute Care; ATTEND Nurse Practitioner Acute Care
DX: F10.239 Alcohol dependence with withdrawal, unspecified (principal); T51.0X1A Toxic effect of ethanol, accidental (unintentional), initial encounter; G40.509 Epileptic seizures related to external causes, not intractable, without status epilepticus; Z59.0 Homelessness; K70.9 Alcoholic liver disease, unspecified; K29.20 Alcoholic gastritis without bleeding; F12.129 Cannabis abuse with intoxication, unspecified; E87.6 Hypokalemia; E80.6 Other disorders of bilirubin metabolism; R74.01 Elevation of levels of liver transaminase levels; F10.221 Alcohol dependence with intoxication delirium
CPT/HCPCS: 36415; 70450-TC; 71045-TC; 80048-TC; 80053-TC; 80061-TC; 80076-TC; 80305; 82962-TC; 83540-TC; 83735-TC; 84100-TC; 84132-TC; 84443-TC; 85025-TC; 85730-TC; 87081-TC; G0378; J1630; J1631; J2060; J3411; J3480; J7030; J7050; J7060; U0003-CS

== ENCOUNTER 2021-05-01 15:28 | Emergency (ER) | payer MEDICAID ==
[~2021-05-01] VITALS: Ht 172.7 cm; Wt 81.6 kg
--- NOTE | 2021-05-01 16:00 | NUR ---
BIBRA39 FRM DETENTION, WITNESSED SEIZURE LIKE ACTIVITY. BACK OF HEAD HEMATOMA, +ORAL TRAUMA. THE PATIENT IS ALERT AND ORIENTED X4. DENIES PAIN. IN ROOM AIR AND DENIES SOB. RESPIRATION REGULAR AND UNLABORED. ATTACHED TO THE MONITOR. WARM BLANKET PROVIDED FOR COMFORT. WILL CONTINUE TO MONITOR THE PATIENT.
--- NOTE | 2021-05-01 16:06 | NUR ---
PT WENT TO CT
[2021-05-01] MEDS ORDERED: IV NS 0.9% 1,000 ML BAG IV ONE (16:30)
[2021-05-01] MEDS ORDERED: LORAZEPAM INJ 2 MG/ML VIAL IVP ONE (16:30)
[2021-05-01] MEDS ORDERED: LORAZEPAM INJ 2 MG/ML VIAL ONE (16:31)
[2021-05-01 17:36] LABS: BASOPHILS % (AUTO) 0.3 % (0.0-2.0); EOSINOPHILS % (AUTO) 0.6 % (0.0-6.0); HEMATOCRIT 41 % (39-51); HEMOGLOBIN 14.4 g/dL (13.5-17.5); LYMPHOCYTES # (AUTO) 0.5 K/uL (0.8-4.8); LYMPHOCYTES % (AUTO) 7.3 % (20.0-44.0); MEAN CORPUSCULAR HGB CONC 35 g/dl (31.0-36.0); MEAN CORPUSCULAR VOLUME 102 fL (80-96); MONOCYTES # (AUTO) 0.8 K/uL (0.1-1.30); MONOCYTES % (AUTO) 12.2 % (2.0-12.0); NEUTROPHILS # (AUTO) 4.9 K/uL (1.8-8.9); NEUTROPHILS % (AUTO) 79.6 % (43.0-81.0); PLATELET COUNT (AUTO) 161 K/uL (150-450); RED BLOOD CELL COUNT(AUTO) 4.04 MIL/uL (4.5-6.0); WHITE BLOOD COUNT (AUTO) 6.2 K/uL (4.3-11.0)
[2021-05-01 18:03] LABS: ALANINE AMINOTRANSFERASE 128 U/L (12-78); ALBUMIN 3.8 g/dL (3.4-5.0); ALCOHOL, BLOOD < 3 mg/dL (0-0); ALKALINE PHOSPHATASE 104 U/L (46-116); ASPARTATE AMINOTRANSFERASE 96 U/L (15-37); BILIRUBIN,DIRECT 0.5 mg/dL (0.0-0.2); BILIRUBIN,TOTAL 1.7 mg/dL (0.2-1.0); CALCIUM, SERUM 8.3 mg/dL (8.5-10.1); CARBON DIOXIDE 27 mmol/L (21-32); CHLORIDE 92 mmol/L (98-107); CREATININE 0.9 mg/dL (0.6-1.3); GLUCOSE 118 mg/dL (74-106); SODIUM SERUM 131 mmol/L (136-145); TOTAL PROTEIN, SERUM 7.6 g/dL (6.4-8.2); UREA NITROGEN, BLOOD 10 mg/dL (7-18)
[2021-05-01 18:05] LABS: POTASSIUM 2.6 mmol/L (3.5-5.1)
[2021-05-01] MEDS ORDERED: FOLIC ACID 1 MG TABLET PO ONE (18:30)
[2021-05-01] MEDS ORDERED: POTASSIUM CHLORIDE 20 MEQ TAB.PRT.SR PO ONE ×2 (18:30→18:48)
[2021-05-01] MEDS ORDERED: CHLORDIAZEPOXIDE HCL 25 MG CAPSULE PO ONE (18:30)
[2021-05-01] MEDS ORDERED: THIAMINE HCL 100 MG TABLET PO ONE (18:30)
[2021-05-01] MEDS ORDERED: MULTIVITAMINS,THERAGRAN 1 UDTAB TABLET PO ONE (18:30)
[2021-05-01] MEDS ORDERED: CHLO25CA22 PO (18:45)
[2021-05-01] MEDS ORDERED: POTA10CA43 PO (18:45)
[2021-05-01] MEDS ORDERED: CHLORDIAZEPOXIDE HCL 25 MG CAPSULE ONE (18:47)
[2021-05-01] MEDS ORDERED: FOLIC ACID 1 MG TABLET ONE (18:47)
[2021-05-01] MEDS ORDERED: THIAMINE HCL 100 MG TABLET ONE (18:48)
[2021-05-01] MEDS ORDERED: MULTIVIT W/MINERALS 1 TAB TABLET ONE (18:48)
[2021-05-01 19:02] LABS: BAND % (MANUAL) 6 % (0.0-5.0); LYMPHOCYTES % (MANUAL) 19 % (16-48); MONOCYTES % (MANUAL) 6 % (0-11.0); NEUTROPHILS % (MANUAL) 69 (42-76)
--- NOTE | 2021-05-01 19:08 | NUR ---
The patient is alert and oriented x4. Denies pain. In room air and denies SOB. Respiration regular and unlabored. IV removed. Catheter intact and site benign. Pressure and 4x4 applied to site. No bleeding noted.Patient discharged to home in stable condition. Written and verbal after care instructions given. Patient verbalizes understanding of instruction.
[2021-05-01 19:09] VITALS: BP 155/98
== END 2021-05-01 19:09 | disposition home or self-care (01) ==
LOC: ER 15:31
DX: F10.239 Alcohol dependence with withdrawal, unspecified (principal); R56.9 Unspecified convulsions; E87.6 Hypokalemia; F17.200 Nicotine dependence, unspecified, uncomplicated; Z79.899 Other long term (current) drug therapy; Y90.0 Blood alcohol level of less than 20 mg/100 ml
CPT/HCPCS: 36415; 70450; 72125; 76705; 80048; 80076; 80320; 83735; 85007; 85025; 93005; 96361; 96374; 99285; J2060; J7030; G0480

== ENCOUNTER 2021-09-18 05:53 | Inpatient (IN) | payer MEDICAID ==
[~2021-09-18] VITALS: Ht 170.2 cm; Wt 63.5 kg
[~2021-09-18 05:53] MED LIST: CHLO25CA22 PO; POTA10CA43 PO
--- NOTE | 2021-09-18 06:18 | NUR ---
PRESENTED TO THE ER FOR EVALUATION OF S/P WITHNESSED SEIZURE AT THE NURSING HOME. WITH HISTORY OF SEIZURE. PT A, OX3 ON TRIAGE. PLACED IN ER BED 1, VSS, SEIZURE PRECAUTION IMPLEMENTED . WILL CONT TO MONITOR,
[2021-09-18] MEDS ORDERED: ONDANSETRON HCL/PF 4 MG/2 ML VIAL ONE (06:24)
[2021-09-18] MEDS ORDERED: LORAZEPAM INJ 2 MG/ML VIAL ONE (06:25)
[2021-09-18] MEDS ORDERED: LORAZEPAM INJ 2 MG/ML VIAL IVP ONE (06:30)
[2021-09-18] MEDS ORDERED: LEVETIRACETAM (500MG) 500 MG in IV NS 0.9% 100 ML IV ONE (06:30)
[2021-09-18] MEDS ORDERED: ONDANSETRON HCL/PF 4 MG/2 ML VIAL IV ONE (06:30)
[2021-09-18] MEDS ORDERED: IV NS 0.9% 1,000 ML BAG IV ONE (06:30)
--- NOTE | 2021-09-18 06:32 | NUR ---
RECORDED WASTE 1.75MG ATIVAN. CORRECTED WASTE AMONUT 1.5MG ATIVAN, WITNESSED BY KELSI CRAVEN
--- NOTE | 2021-09-18 06:42 | NUR ---
BINGO CHECKER AT BEDSIDE
[2021-09-18 06:59] LABS: ALANINE AMINOTRANSFERASE 179 U/L (12-78); ALCOHOL, BLOOD < 3 mg/dL (0-0); ALKALINE PHOSPHATASE 179 U/L (46-116); ASPARTATE AMINOTRANSFERASE 395 U/L (15-37); BILIRUBIN,DIRECT 0.6 mg/dL (0.0-0.2); CALCIUM, SERUM 8.5 mg/dL (8.5-10.1); CARBON DIOXIDE 21 mmol/L (21-32); CHLORIDE 91 mmol/L (98-107); GLUCOSE 147 mg/dL (74-106); SODIUM SERUM 133 mmol/L (136-145); TOTAL PROTEIN, SERUM 7.7 g/dL (6.4-8.2); UREA NITROGEN, BLOOD 4 mg/dL (7-18)
--- NOTE | 2021-09-18 07:00 | NUR ---
URINE AND COVID TEST COLLECTED AND SENT TO LAB
[2021-09-18 07:04] LABS: POTASSIUM 2.8 mmol/L (3.5-5.1)
--- NOTE | 2021-09-18 07:04 | NUR ---
POTASSIUM 2.8
[2021-09-18 07:11] LABS: BASOPHILS # (AUTO) 0.1 K/uL (0.0-0.2); EOSINOPHILS % (AUTO) 1.5 % (0.0-6.0); HEMATOCRIT 43 % (39-51); HEMOGLOBIN 15.3 g/dL (13.5-17.5); LYMPHOCYTES # (AUTO) 1.3 K/uL (0.8-4.8); LYMPHOCYTES % (AUTO) 26.1 % (20.0-44.0); MEAN CORPUSCULAR HGB CONC 35 g/dl (31.0-36.0); MEAN CORPUSCULAR VOLUME 103 fL (80-96); MONOCYTES # (AUTO) 0.9 K/uL (0.1-1.30); MONOCYTES % (AUTO) 18.6 % (2.0-12.0); NEUTROPHILS # (AUTO) 2.5 K/uL (1.8-8.9); NEUTROPHILS % (AUTO) 51.8 % (43.0-81.0); PLATELET COUNT (AUTO) 182 K/uL (150-450); WHITE BLOOD COUNT (AUTO) 4.8 K/uL (4.3-11.0)
[2021-09-18] MEDS ORDERED: FAMOTIDINE/PF INJ 20 MG/2 ML VIAL IV ONE ×2 (07:30→07:36)
[2021-09-18] MEDS ORDERED: POTASSIUM CHLORIDE 20 MEQ TAB.PRT.SR PO ONE ×2 (07:30→07:36)
[2021-09-18] MEDS ORDERED: POTASSIUM CL. PREMIX PERIPHER. 100 ML ONE (07:36)
[2021-09-18] MEDS: POTASSIUM CL. PREMIX PERIPHER. 50 ML IV SCH ×2 (07:41→08:41)
--- NOTE | 2021-09-18 08:04 | NUR ---
REPORT GIVEN TO MASHA RN FOR MAGEN
[2021-09-18] MEDS ORDERED: MAG HYDROX/AL HYDROX/SIMETH 30 ML UDC PO PRN (08:30)
[2021-09-18] MEDS ORDERED: ONDANSETRON HCL/PF 4 MG/2 ML VIAL IVP PRN (08:30)
[2021-09-18] MEDS ORDERED: ACETAMINOPHEN 325 MG TABLET PO PRN (08:30)
[2021-09-18] MEDS ORDERED: MAGNESIUM HYDROXIDE 30 ML UDC PO PRN (08:30)
[2021-09-18] MEDS ORDERED: LORAZEPAM INJ 2 MG/ML VIAL IV PRN (08:30)
[2021-09-18] MEDS ORDERED: Z GUARD REMEDY 4 OZ OINT TP PRN (08:30)
--- NOTE | 2021-09-18 08:33 | NUR ---
braid pattern setter notes: pt came from ER C/O witnessed seizure, alert and oriented x 4, on room air, respiration is even and unlabored, no SOB notes, saline lock of left Ac patent flushed well, pt ambulate to bathroom
[2021-09-18] MEDS: CHLORDIAZEPOXIDE HCL 25 MG CAPSULE PO SCH ×2 (09:48→17:34)
[2021-09-18] MEDS: MULTIVITAMINS,THERAGRAN 1 UDTAB TABLET PO SCH (09:48)
[2021-09-18] MEDS: LEVETIRACETAM (250 MG) 250 MG TABLET PO SCH ×2 (09:48→20:38)
[2021-09-18] MEDS: IV NS 0.9% 1,000 ML IV SCH ×2 (09:57→17:34)
[2021-09-18 12:00] VITALS: BP 136/98
[2021-09-18 16:00] VITALS: BP 160/110
--- NOTE | 2021-09-18 17:00 | NUR ---
RN NOTES: WENT TO ROOM FOUND PT BY ROOM WINDOW OPEN WAS TAKING TO A LADY, ROOM SMELL STRONG WEED SMOKING, INFORMED cHARGE NURSE sOON WHO CALLED SECURITY, NOTIFIED PT THAT SMOKING ANYTHING EVEN MARIJUANA IS NOT ALLOWED AT THE HOSPITAL AND HE SHOULD NOT SMOKE AGAIN HERE, SECURITY CAME AND PICKED UP THE WEEDS
--- NOTE | 2021-09-18 19:15 | NUR ---
RN NOTE PT RECEIVED IN BED. PT IS ON ROOM AIR SHOWING NO S/SX OF RESP DISTRESS/SOB. BREATHING EVEN AND UNLABORED. PT IS ABLE TO AMBULATE. IV ACCESS NOTED ON RIGHT FA. LINE FLUSHED, PATENT, AND INTACT WITH NO SIGNS OF INFILTRATION. 0.9% NS RUNNING AT 100 CC/HR. ALL SAFETY MEASURES IMPLEMENTED. CALL LIGHT WITHIN REACH. BED LOCKED AND IN LOWEST POSITION. WILL CONTINUE TO MONITOR AND ASSESS FOR ANY CHANGES DURING SHIFT.
--- NOTE | 2021-09-18 19:30 | NUR ---
fire sprinkler installer Closing Note Pt in bed awake, alert and oriented x 4,respiration even and unlabored, no SOB, non-labored and equal breathing.no seizure activity noted. WALLY midline intact and patent; RAC saline lock running NS at 75 ml/hr. Bed in lowest position, call light within reach, side rails up x3. Will endorse to dayshift nurse to continue care.
[2021-09-18 20:00] VITALS: BP 141/87
[2021-09-19] MEDS: IV NS 0.9% 1,000 ML IV SCH (03:56)
[2021-09-19 04:00] VITALS: BP 141/97
--- NOTE | 2021-09-19 06:19 | NUR ---
RN NOTE NO CHANGES IN PT CONDITION DURING SHIFT. PT IS ON ROOM AIR SHOWING NO S/SX OF RESP DISTRESS/SOB. BREATHING EVEN AND UNLABORED. IV ACCESS NOTED ON RIGHT FA INFUSING 0.9% NS AT 100 CC/HR. ALL SAFETY MEASURES IMPLEMENTED. ALL DUE MEDS GIVEN ORDERED. CALL LIGHT WITHIN REACH. BED LOCKED AND IN LOWEST POSITION. WILL ENDORSE TO MORNING SHIFT RN FOR MAGEN.
[2021-09-19 06:32] LABS: BASOPHILS % (AUTO) 0.4 % (0.0-2.0); EOSINOPHILS % (AUTO) 0.8 % (0.0-6.0); HEMATOCRIT 42 % (39-51); HEMOGLOBIN 14.6 g/dL (13.5-17.5); LYMPHOCYTES # (AUTO) 0.7 K/uL (0.8-4.8); LYMPHOCYTES % (AUTO) 15.6 % (20.0-44.0); MEAN CORPUSCULAR HGB CONC 35 g/dl (31.0-36.0); MEAN CORPUSCULAR VOLUME 102 fL (80-96); MONOCYTES # (AUTO) 0.8 K/uL (0.1-1.30); MONOCYTES % (AUTO) 16.6 % (2.0-12.0); NEUTROPHILS % (AUTO) 66.6 % (43.0-81.0); PLATELET COUNT (AUTO) 125 K/uL (150-450); RED BLOOD CELL COUNT(AUTO) 4.06 MIL/uL (4.5-6.0); WHITE BLOOD COUNT (AUTO) 4.6 K/uL (4.3-11.0)
[2021-09-19 06:54] LABS: CALCIUM, SERUM 8.8 mg/dL (8.5-10.1); CREATININE 0.7 mg/dL (0.6-1.3); MAGNESIUM 1.9 mg/dL (1.8-2.4); PHOSPHORUS 3.4 mg/dL (2.5-4.9)
--- NOTE | 2021-09-19 07:45 | NUR ---
RN OPENING NOTE PATIENT AWAKE IN BED RESTING, A/O X4. NO S/S OF PAIN NOTED AT THIS TIME. ON ROOM AIR, NO DISTRESS OR SHORTNESS OF BREATH NOTED. IV ACCESS RFA, INTACT, PATENT AND FLUSHING WELL. PATIENT WITH EXTERNAL AIRCRAFT STRUCTURE MECHANIC WITH CURRENT READING OF SR, NO CARDIAC DISTRESS NOTED. FALL AND SAFETY MEASURES IN PLACE, BED ALARM ON BED IN LOW AND LOCK POSITION, CALL LIGHT AND TABLE WITHIN EASY REACH, SIDE RAILS UP X2. WILL CONTINUE TO MONITOR.
[2021-09-19 08:00] VITALS: BP_SYST 145; BP_SYST 149; BP_DIAS 100; BP_DIAS 85
[2021-09-19] MEDS ORDERED: POTASSIUM CHLORIDE 20 MEQ TAB.PRT.SR PO ONE (08:00)
[2021-09-19] MEDS: MULTIVITAMINS,THERAGRAN 1 UDTAB TABLET PO SCH (08:23)
[2021-09-19] MEDS: LEVETIRACETAM (250 MG) 250 MG TABLET PO SCH (08:23)
[2021-09-19] MEDS: CHLORDIAZEPOXIDE HCL 25 MG CAPSULE PO SCH (08:23)
[2021-09-19] MEDS ORDERED: LEVE250T2 PO (08:41)
[2021-09-19] MEDS ORDERED: THIA100T88 PO (08:42)
[2021-09-19] MEDS ORDERED: FOLI0.4T6 PO (08:42)
--- NOTE | 2021-09-19 09:29 | NUR ---
patient refused to wait for social work professor ,signed homeless waiver.discharge instruction given,per pt he will go back to same snf and he has his own social work professor there. aware.
[2021-09-19 10:36] LABS: BAND % (MANUAL) 2 % (0.0-5.0); EOSINOPHILS % (MANUAL) 1 % (0-4); LYMPHOCYTES % (MANUAL) 15 % (16-48); MONOCYTES % (MANUAL) 14 % (0-11.0)
[2021-09-19 10:37] LABS: NEUTROPHILS % (MANUAL) 68 (42-76)
== END 2021-09-19 09:00 | disposition home or self-care (01) | DRG 53 ==
LOC: ER 05:55 → TRANSITION 07:40 → TELE1 08:04 → MEDSG1 20:55
PROVIDERS: ADMIT Internal Medicine; ATTEND Internal Medicine
DX: G40.509 Epileptic seizures related to external causes, not intractable, without status epilepticus (principal); N17.0 Acute kidney failure with tubular necrosis; E86.1 Hypovolemia; E87.1 Hypo-osmolality and hyponatremia; F10.239 Alcohol dependence with withdrawal, unspecified; I10 Essential (primary) hypertension; Z59.01 Sheltered homelessness; Z91.19 Patient's noncompliance with other medical treatment and regimen; Z79.899 Other long term (current) drug therapy; F17.200 Nicotine dependence, unspecified, uncomplicated; Z20.822 Contact with and (suspected) exposure to COVID-19; F10.20 Alcohol dependence, uncomplicated; Y90.0 Blood alcohol level of less than 20 mg/100 ml; K70.10 Alcoholic hepatitis without ascites; E87.6 Hypokalemia
CPT/HCPCS: 36415; 71045-TC; 80048-TC; 80076-TC; 82962-TC; 83690-TC; 83735-TC; 84100-TC; 85025-TC; C9803; G0378; G0480; J1953; J2060; J2405; J3480; J3490; J7030

== ENCOUNTER 2021-11-07 19:13 | Emergency (ER) | payer MEDICAID ==
[~2021-11-07] VITALS: Ht 180.3 cm; Wt 74.8 kg
[~2021-11-07 19:13] MED LIST changes: -CHLO25CA22 PO; +FOLI0.4T6 PO; +LEVE250T2 PO; -POTA10CA43 PO; +THIA100T88 PO
[2021-11-07 19:25] VITALS: BP 136/90
--- NOTE | 2021-11-07 19:50 | NUR ---
Patient eloped from facility. ER MD notified.
== END 2021-11-07 20:32 | disposition left against medical advice (07) ==
LOC: ER 19:14
DX: Z53.21 Procedure and treatment not carried out due to patient leaving prior to being seen by health care provider (principal)

== ENCOUNTER 2021-12-21 08:52 | Inpatient (IN) | payer MEDICAID ==
[~2021-12-21] VITALS: Ht 172.7 cm; Wt 72.6 kg
--- NOTE | 2021-12-21 08:55 | NUR ---
TO ER BED 11. [id number] FROM [facility] C/O SEIZURE UNWITNESSED, HX OF ADMITS TO ALCOHOL, LAST DRINK LAST NIGHT. ATTACHED TO MONITOR, SEIZURE PRECAUTIONS APPLIED, PT IS A&OX4. AWAITING MD MAY.
[2021-12-21] MEDS ORDERED: LORAZEPAM INJ 2 MG/ML VIAL ONE ×2 (08:59→11:06)
[2021-12-21] MEDS ORDERED: LORAZEPAM INJ 2 MG/ML VIAL IVP ONE (09:00)
[2021-12-21] MEDS ORDERED: IV NS 0.9% 1,000 ML BAG IV ONE (09:00)
--- NOTE | 2021-12-21 09:04 | NUR ---
MEGAN HORVATH 18G. LABS DRAWN AND COLLECTED.
[2021-12-21] MEDS: LEVETIRACETAM (500MG) 1,000 MG in IV NS 0.9% 100 ML IV SCH (09:10)
--- NOTE | 2021-12-21 09:16 | NUR ---
PT TAKEN TO CT VIA [facility]
[2021-12-21 09:45] LABS: BASOPHILS % (AUTO) 0.4 % (0.0-2.0); EOSINOPHILS % (AUTO) 0.1 % (0.0-6.0); HEMATOCRIT 43 % (39-51); HEMOGLOBIN 14.8 g/dL (13.5-17.5); LYMPHOCYTES # (AUTO) 0.8 K/uL (0.8-4.8); LYMPHOCYTES % (AUTO) 13.8 % (20.0-44.0); MEAN CORPUSCULAR HGB CONC 35 g/dl (31.0-36.0); MEAN CORPUSCULAR VOLUME 102 fL (80-96); MONOCYTES # (AUTO) 0.9 K/uL (0.1-1.30); MONOCYTES % (AUTO) 14.8 % (2.0-12.0); NEUTROPHILS # (AUTO) 4.3 K/uL (1.8-8.9); NEUTROPHILS % (AUTO) 70.9 % (43.0-81.0); PLATELET COUNT (AUTO) 194 K/uL (150-450); RED BLOOD CELL COUNT(AUTO) 4.23 MIL/uL (4.5-6.0)
[2021-12-21 10:01] LABS: CALCIUM, SERUM 8.5 mg/dL (8.5-10.1); CARBON DIOXIDE 21 mmol/L (21-32); CHLORIDE 91 mmol/L (98-107); GLUCOSE 157 mg/dL (74-106); SODIUM SERUM 132 mmol/L (136-145); UREA NITROGEN, BLOOD 6 mg/dL (7-18)
[2021-12-21 10:08] LABS: ALCOHOL, BLOOD < 3 mg/dL (0-0); POTASSIUM 2.4 mmol/L (3.5-5.1)
--- NOTE | 2021-12-21 10:45 | NUR ---
COVID ANTIGEN SWAB DONE AND SENT TO THE LAB
[2021-12-21] MEDS ORDERED: LORAZEPAM INJ 2 MG/ML VIAL IV ONE (11:00)
[2021-12-21] MEDS ORDERED: POTASSIUM CHLORIDE 20 MEQ TAB.PRT.SR PO ONE ×2 (11:00→11:05)
[2021-12-21] MEDS ORDERED: POTASSIUM CL. PREMIX PERIPHER. 50 ML ONE ×2 (11:05→11:07)
--- NOTE | 2021-12-21 11:15 | NUR ---
MOVE SHEET SUBMITTED.
--- NOTE | 2021-12-21 11:15 | NUR ---
X RAY AT BEDSIDE
[2021-12-21] MEDS: POTASSIUM CL. PREMIX PERIPHER. 50 ML IV SCH ×2 (11:20→12:22)
--- NOTE | 2021-12-21 11:21 | NUR ---
[facility] CALLED SKI MOLDER PAGED.
--- NOTE | 2021-12-21 11:25 | NUR ---
URINE COLLECTED AND SENT
[2021-12-21 11:36] LABS: BILIRUBIN,DIRECT 0.4 mg/dL (0.0-0.2); BILIRUBIN,TOTAL 1.5 mg/dL (0.2-1.0); TOTAL PROTEIN, SERUM 8.1 g/dL (6.4-8.2)
--- NOTE | 2021-12-21 13:13 | NUR ---
ROOM 324-1
[2021-12-21] MEDS ORDERED: ONDANSETRON HCL/PF 4 MG/2 ML VIAL IVP PRN (13:30)
[2021-12-21] MEDS ORDERED: Z GUARD REMEDY 4 OZ OINT TP PRN (13:30)
[2021-12-21] MEDS ORDERED: ACETAMINOPHEN 325 MG TABLET PO PRN (13:30)
[2021-12-21] MEDS ORDERED: MAGNESIUM HYDROXIDE 30 ML UDC PO PRN (13:30)
[2021-12-21] MEDS ORDERED: LORAZEPAM 1 MG TABLET PO PRN (13:30)
[2021-12-21] MEDS ORDERED: MAG HYDROX/AL HYDROX/SIMETH 30 ML UDC PO PRN (13:30)
--- NOTE | 2021-12-21 13:49 | NUR ---
REPORT GIVEN TO NURSE JENKINS FOR MAGEN
[2021-12-21] MEDS: IV NS 0.9% 1,000 ML IV SCH ×2 (14:14→21:38)
--- NOTE | 2021-12-21 14:30 | NUR ---
CHEMISTRY TECHNICAL OFFICER NOTE RECEIVED PT FROM ER. PT IN BED AWAKE, A/O X3. ABLE TO MAKE NEEDS KNOWN. NO COMPLAINTS OF PAIN AT THIS TIME. COMPLAINS OF NAUSEA WILL GIVE MEDS. ADMISSION ASSESSMENT COMPLETED. NO SIGNS OF RESPIRATORY DISTRESS OR SOB NOTED. VITAL SIGNS STABLE. STABLE ON RA. IV RIGHT AC 18G INFUSING @125 ML/HR. TELE MONITOR READING SR 81. SAFETY CHECKS IN PLACE: BED LOCKED, LOWEST POSITION, CALL LIGHT WITHIN REACH. WILL CONTINUE TO MONITOR.
[2021-12-21 16:00] VITALS: BP 142/92
[2021-12-21] MEDS: CHLORDIAZEPOXIDE HCL 25 MG CAPSULE PO SCH (17:01)
--- NOTE | 2021-12-21 18:33 | NUR ---
RN CLOSING NOTE PT AWAKE IN BED RESTING COMFORTABLY. ABLE TO MAKE NEEDS KNOWN. NO COMPLAINTS OF PAIN AT THIS TIME. NAUSEA IS UNDER CONTROL. NO SIGNS OF RESPIRATORY DISTRESS OR SOB NOTED. STABLE ON RA. TELE MONITORING READING 80. IV IN RIGHT AC 18G INFUSING NS AT 125ML/HR. ALL SCHEDULED MEDS GIVEN. SAFETY CHECKS: BED LOCKED, IN LOWEST POSITION, CALL LIGHT WITHIN REACH, SIDE RAILS PADDED FOR SEIZURE PRECAUTIONS. WILL ENDORSE TO LAB NURSE NURSE FOR MAGEN.
[2021-12-21 20:00] VITALS: BP 146/77
--- NOTE | 2021-12-21 20:06 | NUR ---
DENTAL EQUIPMENT TECHNICIAN OPENING NOTES: RECEIVED PATIENT AWAKE IN BED, BED IN LOW POSITION CALL LIGHTS WITHIN REACH, NO COMPLAIN OF PAIN AND DISCOMFORT AT THIS TIME, ON ROOM AIR SATURATING WELL, PATIENT IS A/OX3 AMBULATORY, ABLE TO MAKE NEEDS KNOWN REMIND TO USE THE CALL LIGHTS JING NEEDED ASSISTANCE, PATIENT ON TELE MONITOR- SR-83, , IV LINE AT RAC#18 WITH ONGOING NSS@125ML/HR INFUSING WELL, PATIENT KEPT CLEAN AND DRY ALL NEEDS MET WILL CONTINUE TO MONITOR.
[2021-12-21] MEDS ORDERED: LEVETIRACETAM (500MG) 500 MG/5 ML VIAL IV ONE (23:41)
[2021-12-22] VITALS: BP 153/88
[2021-12-22] MEDS: LEVETIRACETAM (500MG) 1,000 MG in IV NS 0.9% 100 ML IV SCH (00:26)
[2021-12-22 04:00] VITALS: BP 143/76
[2021-12-22] MEDS: IV NS 0.9% 1,000 ML IV SCH ×2 (05:47→13:17)
--- NOTE | 2021-12-22 06:39 | NUR ---
DATA RECOVERY PLANNER CLOSING NOTES: PATIENT SLEEP IN BED COMFORTABLY, AROUSABLE TO VERBAL STIMULI, BED IN LOW POSITION CALL LIGHTS WITHIN REACH, NO COMPLAIN OF PAIN AND DISCOMFORT AT THIS TIME, PATIENT ON ROOM AIR SATURATING WELL, ON TELE [id number], AMBULATORY REMIND TO USE THE CALL LIGHTS WHEN NEEDED ASSISTANCE, PATIENT WAS MONITORED FOR SEIZURE EPISODE,NO SEIZURE EPISODE DURING THE SHIFT, PATIENT KEPT CLEAN AND DRY ALL NEEDS MET ENDORSE TO INCOMING SHIFT.
[2021-12-22 06:42] LABS: BASOPHILS % (AUTO) 0.3 % (0.0-2.0); EOSINOPHILS % (AUTO) 0.5 % (0.0-6.0); HEMATOCRIT 38 % (39-51); HEMOGLOBIN 13.1 g/dL (13.5-17.5); LYMPHOCYTES # (AUTO) 0.6 K/uL (0.8-4.8); LYMPHOCYTES % (AUTO) 14.2 % (20.0-44.0); MEAN CORPUSCULAR HGB CONC 35 g/dl (31.0-36.0); MEAN CORPUSCULAR VOLUME 102 fL (80-96); MONOCYTES # (AUTO) 0.8 K/uL (0.1-1.30); MONOCYTES % (AUTO) 19.5 % (2.0-12.0); NEUTROPHILS # (AUTO) 2.6 K/uL (1.8-8.9); NEUTROPHILS % (AUTO) 65.5 % (43.0-81.0); PLATELET COUNT (AUTO) 127 K/uL (150-450); RED BLOOD CELL COUNT(AUTO) 3.73 MIL/uL (4.5-6.0)
[2021-12-22 06:58] LABS: ALBUMIN 3.2 g/dL (3.4-5.0); BILIRUBIN,DIRECT 0.3 mg/dL (0.0-0.2); BILIRUBIN,TOTAL 1.1 mg/dL (0.2-1.0); CREATININE 0.6 mg/dL (0.6-1.3); MAGNESIUM 1.9 mg/dL (1.8-2.4); PHOSPHORUS 2.2 mg/dL (2.5-4.9); TOTAL PROTEIN, SERUM 6.6 g/dL (6.4-8.2)
--- NOTE | 2021-12-22 07:00 | NUR ---
FISCAL SPECIALIST OPENING NOTES PATIENT LAYING IN BED, A/O X 4, ABLE TO MAKE NEEDS KNOWN. TOLERATING WELL ON ROOM AIR WITH NO S/S RESPIRATORY DISTRESS. NO COMPLAINTS OF PAIN OR DISCOMFORT AT THIS TIME. TELE MONITOR WITH SR 98. NO IV ACCESS, MD AWARE. SAFETY MEASURES IN PLACE: BED IN LOWEST LOCKED POSITION, SIDE RAILS UP X 2, CALL LIGHT WITHIN REACH. WILL CONTINUE TO MONITOR.
[2021-12-22 07:12] LABS: POTASSIUM 2.7 mmol/L (3.5-5.1)
[2021-12-22] MEDS ORDERED: POTASSIUM CHLORIDE 20 MEQ TAB.PRT.SR PO ONE (07:30)
--- NOTE | 2021-12-22 07:36 | NUR ---
SIZING END BANDER NOTES RECEIVED CRITICAL LAB RESULT OF POTASSIUM 2.7. NOTIFIED.
[2021-12-22 08:00] VITALS: BP 143/97
[2021-12-22] MEDS: POTASSIUM PHOSPHATE MM 7.5 MMOL in IV NS 0.9% 100 ML IV SCH ×2 (08:33→11:17)
[2021-12-22] MEDS: CHLORDIAZEPOXIDE HCL 25 MG CAPSULE PO SCH (08:34)
[2021-12-22] MEDS ORDERED: THIAMINE HCL 100 MG TABLET PO SCH (09:00)
[2021-12-22] MEDS ORDERED: LEVETIRACETAM (250 MG) 250 MG TABLET PO SCH (09:00)
--- NOTE | 2021-12-22 11:33 | NUR ---
SS Consult: SS consult requested for homelessness. The pt. is a 36 -year-old male patient who was admitted to [facility] after BIBRA due to alcohol withdrawal related seizure. Upon SS consult, the pt. is Alert & Oriented x 4 and makes good eye contact. The pt. appears unkempt with euthymic mood & affect. Pt. denies SI/HI and denies current hallucinations. SW explored pt.s living situation. Patient states he is currently experiencing homelessness the past 3 years. Per pt. he is currently residing at [facility][[address] [place] [address]]. SW explored pt.s mental health Hx. and pt. denies any mental health illness or medication. SW explored pt.s drug & ETOH use. Pt. states he uses Meth and last time was 7 days ago. SW offered pt. rehab referral and pt. refused. Pt. states he is ambulatory and independent with all his ADLs and may need a cane. Pt. stated he will ask the nurse. PRIYA explored pt.s support system. Pt. states he no family or friends in the area. Pt. reports he receives [employer] and [employer]. Plan: Pt. stated he wants to return to [facility][[address] [place] [address]]. PRIYA provided a TAP card to pt. PRIYA provided pt. with homeless resources to jail, food gray, showers etc. and addiction resources pt. accepted resources. Pt. signed homeless waiver and it was placed in the pt.s chart. PRIYA discussed discharge plan with nurse. Year-round shelters: [facility] [place] [address] [place], [place] [phone] ; [facility] [place] [address] [place] [address]; [facility] [id number] [facility]. [facility] [address] Hygiene: [facility]: [address] [place] ; [facility] [address] [facility] ; [facility] [address] . Food Resources: [place] [facility] at [facility]- [address] [place]; Meet Each Need with Dignity ([facility]) [address] [place]; [facility] [address] [facility]; [facility] [address] [facility]. Mental Health resources provided: [facility] [address] [place], [place] [address] ; [facility] [address] [facility] [address], [place], [place] [phone] ; [facility] [address] [facility] [place], [place] [phone] ; [facility] [address] [place], [place] [address] Healthcare Clinics: [facility] [address] [facility], [address] [place]. [place] ; [facility] [address] [facility] [address] [place] [address]; [facility] [address] [place] [address] [phone] Counseling--Outpatient [facility] [address], [address] [place], [place] [address] (Specializes in in-depth psychotherapy for emotional distress: anxiety, depression, interpersonal conflicts, life transitions, childhood abuse) [facility] [address] [place] [address] (Assist with solving problem marital difficulties, separation & divorce, aging parents, & grief, chronic & terminal illness) [facility] [address] [place] [address] (Deal with loss & grief, anxiety, marital difficulties) Homebound/Mental Health Services [address] [facility] [place], [place] [address] (Provide in-home mental services to people who are incapable of leaving their homes) [facility] Senior Service/Resource Center [address] [place] [address] [facility] [address]. [facility] [place] [address] PSYCHIATRIC OUTPATIENT SERVICES [facility] Partial Hospitalization and Intensive Outpatient Program (Managed Care and [place] Only)[address] [facility] [phone] [facility] Partial Hospitalization and Outpatient [address] [place], [place] [phone] [facility] Muse [id number] [facility]. [address] [place], [place] [phone] [facility] Partial Hospitalization and Outpatient [id number] [facility] [place] [place], [phone] Substance Abuse resources provided included: [facility] Substance Abuse Self-Helpline ([facility]) ; [facility] [address] [facility]. [place] [address] ; [facility] [address] [facility] [address] ; [facility] [address] [facility] [phone] ; [facility] [address] [facility] [phone] ; [facility] [address] [facility] [phone] ; [facility] [address] [facility] [phone] ; [facility] Substance Abuse Helpline([facility] ; [facility] ; [facility]; [facility] [place]; [facility] [place]; [facility] [place]; [facility] [place]; [facility] [place]; [facility] [place]; [facility], [facility]. [place]; Alcoholics Anonymous -SFV; Re-Vxaz-Xbiaawm ; Marijuana Anonymous -[facility]; Narcotics Anonymous www.na.org;
[2021-12-22 13:37] LABS: BASOPHILS % (MANUAL) 0 % (0.0-2.0); EOSINOPHILS % (MANUAL) 0 % (0-4); LYMPHOCYTES % (MANUAL) 16 % (16-48); MONOCYTES % (MANUAL) 17 % (0-11.0); NEUTROPHILS % (MANUAL) 67 (42-76)
--- NOTE | 2021-12-22 15:21 | NUR ---
MOTOR AND GENERATOR BRUSH MAKERTOPSTITCHER ZIGZAG NOTES PATIENT MADE AWARE OF MD DISCHARGE INSTRUCTIONS, VERBALIZED UNDERSTANDING AND SIGNED MD DISCHARGE INSTRUCTIONS SHEET. PATIENT ALSO VERBALIZED POSSESSION OF ALL BELONGINGS AND SIGNED BELONGINGS LIST. IV LINE AND ID BAND REMOVED. TELE BOX AND LEADS REMOVED. COPIES OF ALL PAPERWORK PROVIDED. PATIENT AMBULATED OFF OF UNIT BY HIMSELF WITH TAP CARD IN STABLE CONDITION. HOMELESS CHECKLIST COMPLETED WITH SW PRIOR TO DISCHARGE.
== END 2021-12-22 15:19 | disposition home or self-care (01) | DRG 53 ==
LOC: ER 08:57 → TRANSITION 12:43 → TELE 13:15
PROVIDERS: ADMIT Internal Medicine; ATTEND Internal Medicine
DX: G40.509 Epileptic seizures related to external causes, not intractable, without status epilepticus (principal); E43 Unspecified severe protein-calorie malnutrition; K70.9 Alcoholic liver disease, unspecified; E87.1 Hypo-osmolality and hyponatremia; E88.09 Other disorders of plasma-protein metabolism, not elsewhere classified; E86.1 Hypovolemia; E87.6 Hypokalemia; F10.239 Alcohol dependence with withdrawal, unspecified; Z59.00 Homelessness unspecified; G40.909 Epilepsy, unspecified, not intractable, without status epilepticus; Z79.899 Other long term (current) drug therapy; F17.200 Nicotine dependence, unspecified, uncomplicated
CPT/HCPCS: 36415; 70450-TC; 71045-TC; 80048-TC; 80076-TC; 83735-TC; 84100-TC; 84484-TC; 85025-TC; C9803; G0378; G0480; J1953; J2060; J2405; J3480; J3490; J7030